=== PATIENT | male | born 1960 | race Caucasian/White ===

== ENCOUNTER → 2018-09-29 | Outpatient (CLI) | payer OTHER ==
[~2018-09-29] VITALS: Ht 175.3 cm; Wt 104.3 kg
[~2018-09-29] MED LIST: CHROMIUM PIC1000 MCG PO; CINNAMON500 MG PO; D3 DOTS2000 UNIT PO; FENOFIBRATE160 MG PO; FIBER GUMMIES2 GM PO; FISH OIL 1,001000 M2 PO; FLEXERIL PO; IRBESARTAN-HCT1 EACH PO; MAGOX 400400 MG PO; MEN'S MULTIVIT1 EAC1 PO; NAPROSYN500 MG PO; POTASSIUM99 M1 PO; TRAMADOL 50 MG50 MG PO; VITAMIN B COMP1 EAC7 PO; [UNRECOGNIZED DRUG - OTHER] PO
[2018-09-29 09:02] VITALS: BP 124/90
--- NOTE | 2018-09-29 09:18 | NUR ---
Pain Clinic Assessment: 1. History of Osteoarthritis: History of Rheumatoid Arthritis: 2. Height: 5 ft. 9 in. 175.3 cm. Weight: 230.0 lb. oz. 104.328 kg. Patient's BMI: 33.9 3. Vital Signs: BP: 124/90 Pulse: 76 Resp: 16 Temp: 02 Sat: 96 ECG Mon: 4. Pain Intensity: 5 5. Fall Risk: Dizziness: N Needs help standing or walking: N Fallen in the last 3 months: N Fall risk comments: 6. Patient on Blood Thinner: None 7. History of Hypertension: Y 8. Opioid Therapy greater than 6 weeks: N Opiate Contract Signed: 9. Risk Assessment Tool Provided: LOW 10. Functional Assessment Tool: 11. Recreational Drug Use: Never Drug Type: Tobacco Use: Never Smoker Tobacco Type: Amount or Packs/day: How Many Years: Alcohol Use: Yes Frequency: Monthly Quant: 2 MONTH
--- NOTE | 2018-10-06 07:40 | HPC ---
[facility] [place] [address] PAIN MANAGEMENT CONSULTATION Name: MARIONEDVIN Sawyer Room #: REG [facility].#: [id number] Admission: 09/29/18 ������������������ Attend Phys: Parveen Tariq MD Discharge: ������������������ Date of : 60 Report #: [id number] THIS REPORT FOR: //name// CC: Anderson Beverly APN DATE OF SERVICE: 09/29/2018 CHIEF COMPLAINT: Low back pain with radiation to both legs. HISTORY OF PRESENT ILLNESS: The patient is a very pleasant 58-year-old I am seeing today at the request of Dr. Sandy and his team. He has low back pain that began in 11/2017. 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 There was no specific injury. As the months progressed, his pain became more and more severe, now scored at a 5/10. It has some radiation into each leg, but it does not follow a consistent dermatomal pattern. At times, into the groin and it can be right or left. At times, down his legs all the way to the feet involving multiple dermatome distributions. It is unpredictable. Other than, he is always worse in the morning when he first gets up. He had a previous laminectomy [address] Garcia at L4-L5. He was well following that surgery and remained active for the next 20+ years until this new episode. MEDICATIONS: Irbesartan, hydrochlorothiazide, tramadol, cyclobenzaprine, fenofibrate, potassium, vitamins B, D3, fish oil, chromium picolinate, corosolic acid, One A Day Men's 50+, cinnamon extract, magnesium 500, potassium gluconate, fiber gummies and Aleve caplet as needed. ALLERGIES: None listed. PAST MEDICAL HISTORY: Significant for the laminectomy, bilateral knee replacement, shoulder reconstruction, umbilical hernia repair, urethral stricture repair x 3, carpal tunnel repair. Most recent surgery was shoulder partial replacement 07/[address] Valerio Land. He denies health issues other than hypertension, which is treated by Dr. Bob. 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 He has not been able to work at all for the last 6 weeks. Denies use of tobacco, [place] [address] PAIN MANAGEMENT CONSULTATION Name: EDVIN SCHULTZ Room #: REG [facility] Cook#: [id number] Admission: 09/29/18 ������������������ Attend Phys: Parveen Tariq MD Discharge: ������������������ Date of : 60 Report #: [id number] drinks alcohol once perhaps a week in a social setting. Pain impact is high involving general activity, mood, walking ability 05/14; relationships with others, sleep and enjoyment of life 04/14. REVIEW OF SYSTEMS: Lists only kidney stones, otherwise completely negative as completed by the patient. PHYSICAL EXAMINATION: He is a very pleasant, soft spoken, 58-year-old. His blood pressure 124/90, heart rate 76, respirations 16. He independently moves from sitting to standing position without too much difficulty. He ambulates without antalgic features. His chest is clear to auscultation. His cardiac rhythm is regular. His abdomen is soft. There is no bruit. Examination of the spine reveals good range of motion with exacerbation only of mild pain with rotation to the left. Lateral tilt forward flexion and extension are performed without aggravation. Straight leg raising is only mildly positive with discomfort in the back. Mild pain in the legs. Sensation is intact. Deep tendon reflexes are absent in knees and ankles. Strength is excellent. MRI scan shows moderate degenerative loss of disk height and diffuse posterior disk bulging at L3-L4 that are new since the prior study of 2013. There is facet degenerative change and significant ligamentum flavum thickening of approximately 6 mm filling defect on axial series 106. There is a focal left facet osteophyte and there is consideration given to either an extruded disk fragment and also possibility of a synovial cyst at L3-L4. Thecal sac is 0.8 cm on AP diameter. At L4-L5, there is severe loss of disk height. This is the area of his previous surgery. There is a moderate to diffuse posterior disk bulging effacing the lateral recesses as well as bilateral neural foraminal narrowing. Lesser findings are noted at L5-S1. IMPRESSION: 1. Low back pain with radiation into both legs with some radicular component, although it is not consistent. 2. Degenerative disk disease at L3-L4 and history of previous laminectomy L4-L5 with diskectomy of L4-L5. RECOMMENDATIONS: 1. Physical therapy has been ordered. Important for him to continue moving. 2. Epidural steroid injection to aid with pain. 3. Follow up in 1 month for possible repeat injection. 4. Continue with medications as ordered including tramadol and nonsteroidal anti-inflammatory drug. He tolerates them well. After extensive discussion of pain generator and concerns, I explained the epidural steroid injection risks and benefits. He is anxious to proceed today [address] [address] PAIN MANAGEMENT CONSULTATION Name: EDVIN SCHULTZ Room #: NORMA Cook#: [id number] Admission: 09/29/18 ������������������ Attend Phys: Parveen Tariq MD Discharge: ������������������ Date of : 60 Report #: [id number] with hopeful pain relief coming over the course of next several days. After informed consent was completed, he was taken to the fluoroscopic suite, placed prone, skin prepped with ChloraPrep. Skin anesthetized over the L3-L4 interspace. A 20-gauge Tuohy epidural needle was advanced first attempt through a thick ligamentum flavum. Good loss of resistance was obtained and no blood or CSF was aspirated. 1 mL of Omnipaque injected. Good spread of dye observed into the epidural space. There was some evidence of narrowing noted at L3-L4 from a thickened ligamentum flavum. This was then followed by 3 mL of 0.5% lidocaine mixed with 80 mg of triamcinolone. He tolerated the procedure well. Pain score was 4 in recovery room and discharged. Followup visit planned in 1 month. ��������������������������������������������� <ELECTRONICALLY SIGNED> ���������������������������������������� By: Parveen Tariq MD ��������������������������������������������� 10/06/18 0740 [id number] Parveen Tariq MD /nt
== END | disposition home or self-care (01) ==
LOC: PAIN 07:42
DX: M51.16 Intervertebral disc disorders with radiculopathy, lumbar region (principal); G89.29 Other chronic pain; I10 Essential (primary) hypertension; Z98.890 Other specified postprocedural states; Z87.442 Personal history of urinary calculi; Z96.653 Presence of artificial knee joint, bilateral; Z96.612 Presence of left artificial shoulder joint

== ENCOUNTER → 2018-10-27 | Outpatient (CLI) | payer OTHER ==
[~2018-10-27] VITALS: Ht 175.3 cm; Wt 106.6 kg
[2018-10-27 08:59] VITALS: BP 124/79
--- NOTE | 2018-10-27 09:11 | NUR ---
Pain Clinic Assessment: 1. History of Osteoarthritis: History of Rheumatoid Arthritis: 2. Height: 5 ft. 9 in. 175.3 cm. Weight: 235.0 lb. oz. 106.596 kg. Patient's BMI: 34.7 3. Vital Signs: BP: 124/79 Pulse: 81 Resp: 16 Temp: 02 Sat: 96 ECG Mon: 4. Pain Intensity: 3 AVG 8 STOPS HIM 5. Fall Risk: Dizziness: N Needs help standing or walking: N Fallen in the last 3 months: N Fall risk comments: 6. Patient on Blood Thinner: None 7. History of Hypertension: Y 8. Opioid Therapy greater than 6 weeks: N Opiate Contract Signed: 9. Risk Assessment Tool Provided: LOW 10. Functional Assessment Tool: 11. Recreational Drug Use: Never Drug Type: Tobacco Use: Never Smoker Tobacco Type: Amount or Packs/day: How Many Years: Alcohol Use: Yes Frequency: Quant:
--- NOTE | 2018-10-29 15:29 | HPC ---
[facility] [place] [address] PAIN MANAGEMENT CONSULTATION Name: EDVIN SCHULTZ Room #: REG [facility] Rachael.#: [id number] Admission: 10/27/18 ������������������ Attend Phys: Parveen Tariq MD Discharge: ������������������ Date of : 60 Report #: [id number] THIS REPORT FOR: //name// CC: Anderson Mendez DATE OF SERVICE: 10/27/2018 REASON FOR VISIT: Followup visit for pain in the right groin. HISTORY OF PRESENT ILLNESS: I saw the patient on 09/29/2018 and he received a lumbar epidural steroid injection along with a prescription for physical therapy. He responded favorably with significant improvement in his back pain following the epidural; however, he continues to have exercise related pain that radiates into the right groin. It is fairly well localized. He does, however, have some radiating numbness in the right leg to the foot with tingling and numbness that follows in the L5 distribution involving the top of the foot and the middle toes. This is all worse with activity. I encouraged him to walk and he did a 4-mile walk right out of the gate. This exacerbated his pain some. He also has found that when he did yard work over the weekend that his pain was more severe as to be expected. This should quiet down over the next few days. The localization of his pain suggests a hip origin, although his exam is fairly normal. In order to reassure him and also to make sure that we are not missing a hip related arthropathy, I have suggested an MRI of the right hip. This has been ongoing now for many months. We have not affected his leg pain much with the initial epidural injection before proceeding with another shot. We will make sure that we are not missing a hip related pain generator. PHYSICAL EXAMINATION: GENERAL: He is a pleasant, alert and oriented, moves easily from sitting to standing with mild antalgic gait. VITAL SIGNS: His blood pressure 124/79, heart rate 81 and his BMI is 34.7. MUSCULOSKELETAL: Straight leg raising is negative other than hamstring tightness. He has good range of motion of the hip with internal and external rotation, flexion and extension, none of which markedly increases his pain. He has some localized tenderness over the groin just below the inguinal ligament. This overlying the right hip joint itself. There is some radiating pain that follows a referred pattern into the top of the leg. Sensation is slightly diminished in the right foot, light touch in the L5 distribution. Strength is all normal. RADIOLOGICAL DATA: X-ray once again shows possible extruded fragment and developing a synovial cyst; however, this [place] [address] PAIN MANAGEMENT CONSULTATION Name: EDVIN SCHULTZ Room #: REG [facility] Cook#: [id number] Admission: 10/27/18 ������������������ Attend Phys: Parveen Tariq MD Discharge: ������������������ Date of : 60 Report #: [id number] should be noted both lateral recesses are effaced, just worse on the left. Thecal sac is about 0.8 mm at the L3-L4 level, which is his affected side. IMPRESSION: 1. Right hip pain. This is fairly localized, but it is associated with some numbness and is considered at lumbar radiculopathy at this point in time. He has had improvement in back pain, but no response to initial epidural injection in that area. 2. Possible hip arthropathy. He has degenerative arthritis and has had a right knee replaced. Other joints are beset by joint pain and this could be a pain generator. MRI will help us. 3. A followup visit scheduled after his MRI, we will consider either hip injection or repeat lumbar epidural injection. ��������������������������������������������� <ELECTRONICALLY SIGNED> ���������������������������������������� By: Parveen Tariq MD ��������������������������������������������� 10/29/18 1529 [id number] [id number] Parveen Tariq MD /nt
== END ==
LOC: PAIN 06:51
DX: M25.552 Pain in left hip (principal); M54.5 Low back pain; M19.90 Unspecified osteoarthritis, unspecified site; Z96.641 Presence of right artificial hip joint

== ENCOUNTER → 2018-11-10 | Outpatient (CLI) | payer OTHER ==
[~2018-11-10] VITALS: Ht 175.3 cm; Wt 107.0 kg
[~2018-11-10] MED LIST changes: +CELEBREX 200 M200 M1 PO
--- NOTE | ~2018-11-10 | HPC ---
[facility] [place] [address] PAIN MANAGEMENT CONSULTATION Name: EDVIN SCHULTZ Room #: REG [facility] Rachael.#: [id number] Admission: 11/10/18 ������������������ Attend Phys: Parveen Tariq MD Discharge: ������������������ Date of : 60 Report #: [id number] THIS REPORT FOR: //name// CC: WINSTON Tariq DATE OF SERVICE: 11/10/2018 Followup visit for low back pain with radiculopathy and right hip pain. The patient returns in followup today for a 15-minute discussion regarding his chronic pain. He remains much improved after his epidural injection. The radiculopathy is gone and he has now resumed his regimen, using his inversion table about 15 minutes a day. This seems to also provide additional relief. He is not a candidate nor does he need another injection at this time. We performed the MRI of the hip and I am pleased to report that the MRI shows no significant pathology. This is reassuring for the patient and we will continue to treat this as a radiculopathy and not an arthropathy. He uses nonsteroidal anti-inflammatory drug Aleve intermittently. He most recently took it at bedtime. He asked if there were additional options and I have suggested a trial of celecoxib 200 mg. We discussed the GI benefits and also the class warning for cardiac events associated both with Reed-2 inhibiting anti-inflammatory drugs as well as traditional nonsteroidal anti-inflammatory drugs. He will remain cautious, aware of the cardiac, GI and renal side effects of NSAID medication. We discussed the role of epidural injection in the future if pain returns. His favorable response would suggest this will be worthwhile tool if the persistent inflammation returns. For now, he will not be scheduled back in followup and I will see him only as needed. All questions were answered and he was discharged with a prescription for celecoxib 200 mg with 30 tablets with 2 refills. ��������������������������������������������� ���������������������������������������� By: ��������������������������������������������� 1025 0037 Parveen Tariq MD /nt
[2018-11-10 10:00] VITALS: BP 115/78
--- NOTE | 2018-11-10 10:08 | NUR ---
Pain Clinic Assessment: 1. History of Osteoarthritis: History of Rheumatoid Arthritis: 2. Height: 5 ft. 9 in. 175.3 cm. Weight: 236.0 lb. oz. 107.049 kg. Patient's BMI: 34.8 3. Vital Signs: BP: 115/78 Pulse: 86 Resp: 14 Temp: 02 Sat: 96 ECG Mon: 4. Pain Intensity: 2 5. Fall Risk: Dizziness: N Needs help standing or walking: N Fallen in the last 3 months: N Fall risk comments: 6. Patient on Blood Thinner: None 7. History of Hypertension: Y 8. Opioid Therapy greater than 6 weeks: N Opiate Contract Signed: 9. Risk Assessment Tool Provided: LOW 10. Functional Assessment Tool: 11. Recreational Drug Use: Never Drug Type: Tobacco Use: Never Smoker Tobacco Type: Amount or Packs/day: How Many Years: Alcohol Use: Yes Frequency: Quant:
== END ==
LOC: PAIN 09:55
DX: M54.16 Radiculopathy, lumbar region (principal); Z79.891 Long term (current) use of opiate analgesic

== ENCOUNTER → 2019-01-19 | Outpatient (CLI) | payer OTHER ==
[~2019-01-19] VITALS: Ht 175.3 cm; Wt 109.1 kg
[~2019-01-19] MED LIST changes: +ALEVE220 MG PO
--- NOTE | ~2019-01-19 | HPC ---
[facility] [place] [address] PAIN MANAGEMENT CONSULTATION Name: EDVIN SCHULTZ Room #: REG [facility] Rachael.#: [id number] Admission: 01/19/19 ������������������ Attend Phys: Parveen Tariq MD Discharge: ������������������ Date of : 60 Report #: [id number] THIS REPORT FOR: //name// CC: Anderson Tariq DATE OF SERVICE: 01/19/2019 Followup visit for chronic low back pain with radiculopathy. The patient returns to the pain clinic today with left-sided lumbar radicular symptoms following an L3-L4 and L4-L5 distribution. He had a good response to his first epidural injection, which was performed in this clinic on 09/29. Symptoms were almost completely gone after a short period of time and then gradually returned over the course of the last month. His symptoms previously were more right-sided. Today, they return and they are more left-sided. This confirms more closely with the findings on his MRI scan. We reviewed those studies with him today. His MRI scan shows degenerative changes fairly significant at L4-L5. There are changes in the posterior facets. At L3-L4, there is also a filling defect in the left lateral recess arising from the posterior spinal canal with likely cause as a facet osteophyte and ligamentum flavum thickening. Radiologist felt that this could represent a disk fragment. PHYSICAL EXAMINATION: He moves from sitting to standing position, walks with mild antalgic features. He has pain across his low back. Straight leg raising is positive reproducing pain on the left following an L3-L4 and L4-L5 distribution. RECOMMENDATIONS: Epidural steroid injection under fluoroscopic guidance. We talked about the possibility of future consultation with the surgeon if pain returns quickly or is not alleviated by epidural steroid. PROCEDURE: L3-L4 epidural injection under fluoroscopic guidance, left paramedian approach. He was taken to the fluoroscopic suite, placed prone, skin prepped with ChloraPrep. Skin anesthetized over the L4-L5 interspace. A 20-gauge Tuohy epidural needle was advanced in the epidural space in the first attempt using loss of resistance technique. There was no blood or CSF aspirated. A 1 mL of Omnipaque was injected. Good spread of dye observed into the epidural space followed by 3 mL of 0.5% lidocaine mixed with 80 mg of triamcinolone. He [address] [address] PAIN MANAGEMENT CONSULTATION Name: MARIONLAST Room #: REG [facility] Cook#: [id number] Admission: 01/19/19 ������������������ Attend Phys: Parveen Tariq MD Discharge: ������������������ Date of : 60 Report #: [id number] tolerated the procedure well and was observed for 45 minutes and discharged. Follow up as needed. ��������������������������������������������� ���������������������������������������� By: ��������������������������������������������� 1707 2316 Parveen Tariq MD /nt
[2019-01-19 13:17] VITALS: BP 137/78
--- NOTE | 2019-01-19 13:39 | NUR ---
Pain Clinic Assessment: 1. History of Osteoarthritis: History of Rheumatoid Arthritis: 2. Height: 5 ft. 9 in. 175.3 cm. Weight: 240.6 lb. oz. 109.136 kg. Patient's BMI: 35.5 3. Vital Signs: BP: 137/78 Pulse: 81 Resp: 16 Temp: 02 Sat: 98 ECG Mon: 4. Pain Intensity: 4 5. Fall Risk: Dizziness: N Needs help standing or walking: N Fallen in the last 3 months: N Fall risk comments: 6. Patient on Blood Thinner: None 7. History of Hypertension: Y 8. Opioid Therapy greater than 6 weeks: N Opiate Contract Signed: 9. Risk Assessment Tool Provided: LOW 10. Functional Assessment Tool: 11. Recreational Drug Use: Never Drug Type: Tobacco Use: Never Smoker Tobacco Type: Amount or Packs/day: How Many Years: Alcohol Use: Yes Frequency: Quant:
== END | disposition home or self-care (01) ==
LOC: PAIN 06:57
DX: M54.16 Radiculopathy, lumbar region (principal); G89.29 Other chronic pain; Z79.899 Other long term (current) drug therapy

== ENCOUNTER → 2019-03-02 | Outpatient (CLI) | payer OTHER ==
[~2019-03-02] VITALS: Ht 175.3 cm; Wt 106.7 kg
--- NOTE | ~2019-03-02 | HPC ---
[facility] [place] [address] PAIN MANAGEMENT CONSULTATION Name: EDVIN SCHULTZ [id number] Admission: 03/02/19 ������������������ Attend Phys: Parveen Tariq MD Discharge: ������������������ Date of : 60 Report #: [id number] THIS REPORT FOR: //name// CC: Anderson Tariq DATE OF SERVICE: 03/02/2019 Followup visit for radiculopathy. The patient returns to pain clinic today, and he has had a switch in his pain from the left to the right. His MRI, which is about 7 months old, showed that there was a disk fragment at C3-C4 that was extruded and considered as a possible pain generator. This made sense when his symptoms on the left, but now they are on the right. It is not completely out of the question that there is some migration of free fragment, although this can be unusual. He also has moderate right neural foraminal narrowing noted at L5-S1. He is clearly in much more pain than he was earlier. He scores his pain as a 7-9. Pain is worse with standing and weightbearing. PHYSICAL EXAMINATION: GENERAL: He is a pleasant 58-year-old gentleman. VITAL SIGNS: Blood pressure is 106/83, heart rate 101. He is 5 feet 9 inches, 235 pounds, BMI 34.7. Pain intensity is 7/10. MUSCULOSKELETAL: Moves from sitting to standing position. His gait is antalgic. His spine is mildly tender. He has pain with forward flexion and extension. Straight leg raising reproduces pain clearly on the right, and it follows in the upper leg in L3-L4 distribution as well. The pain then passes beyond the knee. It follows an L5 distribution into the top of the foot. Strength is judged to be adequate throughout the lower extremities. There is no foot drop. Sensation is intact. Deep tendon reflexes are diminished at the knees and ankles bilaterally and symmetrically. IMPRESSION: Lumbar radiculopathy, now with L3, L4, L5 distribution. Pain generator may be at the L3-L4 level or the L5-S1 level. RECOMMENDATIONS: I am going to perform a right transforaminal epidural injection at L4-L5. Medication will be intended to spread along the lateral recess from L3-L4 all the way through L5-S1 using that approach. Rationale for displacement was discussed with the patient. If there is no improvement or if the pain is still affecting him dramatically over the course of the next 2 weeks after he has had time to the epidural effect, I would like him to call back to the clinic and let us know. Although it has been recent, I would like to consider ordering another MRI [place] [address] PAIN MANAGEMENT CONSULTATION Name: TIMMYEDVIN BERGER Room #: REG [facility] Cook#: [id number] Admission: 03/02/19 ������������������ Attend Phys: Parveen Tariq MD Discharge: ������������������ Date of : 60 Report #: [id number] intensity and also the location. He may be a surgical candidate if there is a free fragment. PROCEDURE: L4-L5, right transforaminal epidural injection under fluoroscopic guidance. He was taken to fluoroscopic suite, placed prone, skin prepped with ChloraPrep. Skin anesthetized over the right L4-L5 neural foramen. Using triplanar fluoroscopic views, I advanced the needle into the neural foramen. A 1 mL of Omnipaque was injected. Spread of dye was seen outside of the canal and extending along the L4 nerve root. Needle was then repositioned. A good epidurogram was achieved. At this point, I then injected a total of 4 mL of 0.5% lidocaine mixed with 80 mg triamcinolone. He tolerated the procedure well. Pain was reduced to 2 in recovery room at discharge. Follow up as needed. ��������������������������������������������� ���������������������������������������� By: ��������������������������������������������� 1846 1409 Parveen Tariq MD /nt
[2019-03-02 15:30] VITALS: BP 106/83
--- NOTE | 2019-03-02 15:58 | NUR ---
Pain Clinic Assessment: 1. History of Osteoarthritis: Not Applicable History of Rheumatoid Arthritis: Not Applicable 2. Height: 5 ft. 9 in. 175.3 cm. Weight: 235.2 lb. oz. 106.686 kg. Patient's BMI: 34.7 3. Vital Signs: BP: 106/83 Pulse: 101 Resp: 14 Temp: 02 Sat: 97 ECG Mon: 4. Pain Intensity: 7 5. Fall Risk: Dizziness: N Needs help standing or walking: N Fallen in the last 3 months: N Fall risk comments: 6. Patient on Blood Thinner: None 7. History of Hypertension: Y 8. Opioid Therapy greater than 6 weeks: N Opiate Contract Signed: 9. Risk Assessment Tool Provided: LOW 10. Functional Assessment Tool: 43/ 11. Recreational Drug Use: Never Drug Type: Tobacco Use: Never Smoker Tobacco Type: Amount or Packs/day: How Many Years: Alcohol Use: Yes Frequency: Monthly Quant: 1
== END | disposition home or self-care (01) ==
LOC: PAIN 07:03
DX: M54.16 Radiculopathy, lumbar region (principal); M99.73 Connective tissue and disc stenosis of intervertebral foramina of lumbar region; Z79.899 Other long term (current) drug therapy

== ENCOUNTER → 2019-04-02 | Outpatient (CLI) | payer OTHER ==
[~2019-04-02] VITALS: Ht 175.3 cm; Wt 104.5 kg
[~2019-04-02] MED LIST changes: +GABAPENTIN 100100 MG PO
--- NOTE | ~2019-04-02 | HPC ---
[facility] [place] [address] PAIN MANAGEMENT CONSULTATION Name: MARIONEDVIN Room #: REG [facility] Rachael.#: [id number] Admission: 04/02/19 Attend Phys: Parveen Tariq MD Discharge: Date of : 60 Report #: [id number] THIS REPORT FOR: //name// CC: Anderson Tariq DATE OF SERVICE: 04/02/2019 Followup visit for recurring lumbar radiculopathy. I spoke for 15 minutes with Edvin on the phone last week and is here today with his to review once again his new MRI. All three of us looked at the films together. The new finding is consistent with his symptoms. He has a mild subarticular disk extrusion at L5-S1 contributing to right foraminal stenosis and superior displacement of the right L5 nerve root. An epidural injection could be repeated using a transforaminal approach at L5-S1 or perhaps a midline approach. His last injection was performed at L4-L5. This is between his anterolisthesis at L3-L4 and his new injury. I expected him to get some relief, which he did, but it was not lasting. We have discussed other options as well including surgery. We talked about medications and I have started him on gabapentin 100 mg titrating up to 300 mg 3 times a day. He was given 90 capsules and instructions were provided by myself and the nurse. Physical therapy should be helpful as well. We discussed the importance of therapy and a prescription was written for weekly exercise. Finally, I referred him to Dr. Edvin Sandy for surgical evaluation. I want to make sure that he had all of his options covered. I think that there is a good chance that this may improve with time, but if surgery is indicated or if Dr. Sandy feels that surgery is indicated, we may proceed with that course. PHYSICAL EXAMINATION: He seems a bit depressed, and anxious about the future. I tried to reassure him that this is a condition that can improve. His blood pressure is 117/66, heart rate 78, respirations 14. Gait is mildly antalgic. Positive straight leg raising is noted in the right, radiating into the right foot and right leg involving the L5-S1 distribution. IMPRESSION: Lumbar radiculopathy. [facility] [address] [place] [address] PAIN MANAGEMENT CONSULTATION Name: EDVIN SCHULTZ Room #: REG [facility].#: [id number] Admission: 04/02/19 Attend Phys: Parveen Tariq MD Discharge: Date of : 60 Report #: [id number] PLAN: As above. By: [id number] Parveen Tariq MD /nt
[2019-04-02 10:39] VITALS: BP 117/66
--- NOTE | 2019-04-02 10:59 | NUR ---
Pain Clinic Assessment: 1. History of Osteoarthritis: Not Applicable History of Rheumatoid Arthritis: Not Applicable 2. Height: 5 ft. 9 in. 175.3 cm. Weight: 230.4 lb. oz. 104.509 kg. Patient's BMI: 34.0 3. Vital Signs: BP: 117/66 Pulse: 78 Resp: 14 Temp: 02 Sat: 96 ECG Mon: 4. Pain Intensity: 4 NOW 8 AT HS 5. Fall Risk: Dizziness: N Needs help standing or walking: N Fallen in the last 3 months: N Fall risk comments: 6. Patient on Blood Thinner: None 7. History of Hypertension: Y 8. Opioid Therapy greater than 6 weeks: N Opiate Contract Signed: 9. Risk Assessment Tool Provided: LOW 10. Functional Assessment Tool: 43 11. Recreational Drug Use: Never Drug Type: Tobacco Use: Never Smoker Tobacco Type: Amount or Packs/day: How Many Years: Alcohol Use: Yes Frequency: Quant:
== END ==
LOC: PAIN 08:26
DX: M54.16 Radiculopathy, lumbar region (principal)